=== PATIENT | female | born 1960 | race Caucasian/White ===

== ENCOUNTER 2017-12-16 09:01 | Outpatient (CLI) | payer OTHER ==
--- NOTE | 2017-12-16 11:18 | CT ---
CT ABDOMEN WITH AND WITHOUT IV CONTRAST: Date: 12/16/17 HISTORY: Upper abdomen pain. Abnormal sonogram. FINDINGS: The lung bases are clear. Gallbladder has a normal appearance. No abnormal masses or abnormal enhance ment of the liver is apparent. No free fluid is visible. Spleen measures up to 14.2 cm. There is prom inent calcification in the arterial structures. The pelvis was not imaged. IMPRESSION: 1. Mild splenomegaly. Cause is not evident, although it could reflect portal venous hypertension. 2. Status post cholecystectomy. Normal CT appearance of the liver. 3. Prominent atherosclerosis. POS: [facility]
== END 2017-12-16 09:02 | disposition home or self-care (01) ==
LOC: CT 09:01
PROVIDERS: ATTEND Family Medicine
DX: K76.89 Other specified diseases of liver (principal); R16.1 Splenomegaly, not elsewhere classified; Z90.49 Acquired absence of other specified parts of digestive tract; I70.90 Unspecified atherosclerosis
CPT/HCPCS: 74170